=== PATIENT | male | born 1995 | race Hispanic/Latino ===

== ENCOUNTER 2016-08-06 12:34 | Emergency (ER) | payer OTHER ==
[2016-08-06] MEDS ORDERED: ASPIRIN PO STA (13:14)
--- NOTE | 2016-08-06 13:22 | PROVIDER DOCUMENTATION ---
HPI-Chest Pain - General Source: patient - History of Present Illness-CP Location: reports: substernal Chest Pain Radiation: reports: no radiation Quality of Pain: reports: aching Severity in ED: mild Onset/Duration: this morning Timing: still present, intermittent Context/Activities at Onset: reports: light activity Modifying Factors: improves with: nothing Associated Symptoms: denies: abdominal pain, back pain, diaphoresis, dizziness, edema, fatigue, fever/chills, headache, heartburn, nausea, rash, shortness of breath, swelling/lump in chest, syncope, vomiting, weakness Nitro Today/Relief: no nitro taken today Aspirin Treatment Today: no aspirin today Prior Chest Pain/Cardiac Workup: reports: no prior chest pain, no prior cardiac workup Similar Symptoms Previously?: No Recently Seen Here or By Another Healthcare Provider: No <Tasneem Bang - Last Filed: 08/06/16 14:03> <Anneliese Dillon - Last Filed: 08/06/16 14:15> - General Chief Complaint: Chest Pain Stated Complaint: CHEST PAIN Time Seen by Provider: 08/06/16 13:00 Allergies/Adverse Reactions: Patient Allergies Allergy/AdvReac Type Severity Reaction Status Date / Time No Known Allergies Allergy Verified 08/06/16 12:37 Home Medications: Home Medication List Medication Instructions Recorded Confirmed Last Taken Type Ketorolac [Toradol] 10 mg PO Q6H PRN PRN #20 tablet 08/06/16 Unknown Rx Methocarbamol [Robaxin] 500 mg PO BID #14 tablet 08/06/16 Unknown Rx - History of Present Illness-CP Nature of Presenting Problem: Pt is 20 y/o M presents to the ED with CP. Pt states the chest pain stated this am while he was eating breakfast. Pt denies cold like symptoms. Pt denies F. Pt denies N/V. Pt denies radiation of pain. Pt states worse with deep breathing. ( Tasneem Bang) Review of Systems - Adult - REVIEW OF SYSTEMS - ADULT Constitutional: denies: chills, fever Eyes: denies: blurred vision, double vision Ears, Nose, Mouth & Throat: denies: ear pain, nose pain, throat pain Cardiovascular: reports: chest pain. denies: heart murmur, irregular heart rate Respiratory: denies: cough, shortness of breath, wheezing Gastrointestinal: denies: abdominal pain, diarrhea, nausea, vomiting Genitourinary: denies: dysuria, hematuria Musculoskeletal: denies: bone pain, joint pain, neck pain Integumentary: denies: hives, itching Neurological: denies: dizziness/vertigo, headache/migraines Psychiatric: denies: anxiety, depression Endocrine: reports: no symptoms reported Hematologic/Lymphatic: reports: no symptoms reported Allergic/Immunologic: reports: no symptoms reported All Other Systems: Reviewed and Negative <Laya Bangomi - Last Filed: 08/06/16 14:03> Past History - Adult - PAST MEDICAL HISTORY-ADULT Review of Records: reports: Nursing Assessment Review, Medications Reviewed, Social history reviewed & non-contributory. Major Childhood Illnesses: reports: denies history Cardiovascular: reports: denies history Respiratory: reports: asthma Gastrointestinal: reports: denies history Obstetrical/Gynecological: reports: denies history Genitourinary: reports: denies history Musculoskeletal: reports: denies history Neurological: reports: denies history Endocrine/Immune: reports: denies history Other Conditions: reports: denies history - PRIOR SURGERIES/PROCEDURES Surgical/Procedure History: reports: reviewed, not pertinent - IMMUNIZATION STATUS Childhood Immunizations: See Nurse Assessment Flu Vaccine: See Nurse Assessment - FAMILY HISTORY Family History: reviewed, not pertinent - SOCIAL HISTORY Smoking: denies Substance Use: alcohol Alcohol Use Frequency: 3-4 times a week Number of drinks per typical drinking period:: 3-4 drinks Living Situation: family <Laya Bangomi - Last Filed: 08/06/16 14:03> Physical Exam-General - PHYSICAL EXAM-ADULT Initial Vital Signs Reviewed: Yes - CONSTITUTIONAL General Appearance: appears well, alert, no apparent distress - EYES Eyes: PERRL/EOMI, pink conjunctivae, fundi clear, no AV nicking - HEAD, EARS, NOSE, MOUTH & THROAT HENMT: normocephalic/atraumatic, moist mucous membranes, normal ENT inspection, TMs normal, pharynx normal - NECK Neck: non-tender, full range of motion, supple, normal inspection - RESPIRATORY Respiratory: chest non-tender, lungs clear, normal breath sounds, no pleuratic chest pain, no respiratory distress, no accessory muscle use - CARDIOVASCULAR Cardiovascular: normal peripheral pulses, regular rate, rhythm, no edema, no gallop, no JVD, no murmur - GASTROINTESTINAL (ABDOMEN) Abdominal Exam: normal bowel sounds, non tender, soft, no organomegaly, no pulsatile mass - LYMPHATIC Lymphatic: no adenopathy - MUSCULOSKELETAL Back Exam: normal inspection, no CVA tenderness, no vertebral tenderness Extremity: normal range of motion, non-tender, normal gait, normal inspection, no pedal edema, no calf tenderness, normal capillary refill - SKIN Integumentary: normal color, normal turgor, warm/dry - NEUROLOGIC Neurologic: grossly normal - PSYCHIATRIC Psych/Mental Status: normal mood/affect, oriented x 3 <Tasneem Bang - Last Filed: 08/06/16 14:03> Progress - EKG 1 Time of EKG reading by physician:: 13:21 EKG Read and Signed by:: Frank Thompson EKG Interpretation (*Must complete 3 of following elements*): Normal Rate: 72 Rhythm: normal sinus rhythm Comments: normal ECG <Tasneem Bang - Last Filed: 08/06/16 14:03> - XRAY 1 XRAY: Bilateral XRAY Study: Chest Impression: Normal (NAD) <Anneliese Dillon - Last Filed: 08/06/16 14:15> - PLAN OF CARE/RESULTS Progress/Plan/Lab Results: Orders Category Date Time Status Cardiac Monitoring DIRECTED Care 08/06/16 13:14 Active Saline Loc NOW Care 08/06/16 13:14 Active CHEST-2 VIEWS [RAD] Stat Exams 08/06/16 13:14 Ordered CBC WITH ELECTRONIC DIFF [HEME] Stat Lab 08/06/16 13:14 Ordered CK PROFILE [SP CHEM] Stat Lab 08/06/16 13:14 Ordered COMPREHENSIVE METABOLIC PANEL [CHEM] Stat Lab 08/06/16 13:[address] Ordered D-DIMER PL [COAG] Stat Lab 08/06/16 13:14 Ordered MAGNESIUM [CHEM] Stat Lab 08/06/16 13:14 Ordered PRO B-NATRIURETIC PEPTIDE Stat Lab 08/06/16 13:[address] Or[address]IME WITH INR PL [COAG] Stat Lab 08/06/16 13:[address] [COAG] Stat Lab 08/06/16 13:14 Ordered TROPONIN T Stat Lab 08/06/16 13:14 Ordered Aspirin Med 08/06/16 13:14 Discontinued 325 mg PO STAT STA EKG [EKG] Stat Ther 08/06/16 12:50 Ordered Vital Signs - 24 hr 08/06/16 12:37 Temperature 97.8 F Pulse Rate 73 Respiratory 18 Rate Blood Pressure 142/076 O2 Sat by Pulse 100 Oximetry Laboratory Tests 08/06/16 08/06/16 08/06/16 13:30 13:30 13:30 WBC 4.47 L RBC 5.81 Hgb 15.2 Hct 43.0 MCV 74.0 L MCH 26.2 L MCHC 35.3 RDW Std Deviation 14.1 Plt Count 201 MPV 10.7 H Immature Gran % (Auto) 0.0 Neut % (Auto) 49.8 Lymph % (Auto) 33.1 Bradford % (Auto) 12.1 H Eos % (Auto) 4.3 Baso % (Auto) 0.7 Immature Gran # (Auto) 0.00 Neut # (Auto) 2.23 Lymph # (Auto) 1.48 Bradford # (Auto) 0.54 Eos # (Auto) 0.19 Baso # (Auto) 0.03 PT INR APTT (Factor Assay) Sodium 143 Potassium 3.8 Chloride 106 Carbon Dioxide 27 Anion Gap 10 BUN 18 Creatinine 0.8 Estimated GFR/1.73 m2 > 60 BUN/Creatinine Ratio 23 Glucose 84 Calculated Osmolality 286 Calcium 9.2 Magnesium 2.1 Total Bilirubin 0.30 AST 21 ALT 20 Alkaline Phosphatase 83 Creatine Kinase 162 Troponin T < 0.010 Total Protein 7.6 Albumin 4.7 Globulin 3.0 Albumin/Globulin Ratio 2.0 08/06/16 13:30 WBC RBC Hgb Hct MCV MCH MCHC RDW Std Deviation Plt Count MPV Immature Gran % (Auto) Neut % (Auto) Lymph % (Auto) Bradford % (Auto) Eos % (Auto) Baso % (Auto) Immature Gran # (Auto) Neut # (Auto) Lymph # (Auto) Bradford # (Auto) Eos # (Auto) Baso # (Auto) PT 13.0 INR 0.95 APTT (Factor Assay) 27.2 Sodium Potassium Chloride Carbon Dioxide Anion Gap BUN Creatinine Estimated GFR/1.73 m2 BUN/Creatinine Ratio Glucose Calculated Osmolality Calcium Magnesium Total Bilirubin AST ALT Alkaline Phosphatase Creatine Kinase Troponin T Total Protein Albumin Globulin Albumin/Globulin Ratio (Tasneem Bang) Vital Signs Temp Pulse Resp BP Pulse Ox 08/06/16 12:37 97.8 F 73 18 142/076 100 No Known Allergies Allergy (Verified 08/06/16 12:37) No Home Medications 08/06/16 Laboratory 08/06/16 08/06/16 08/06/16 13:30 13:30 13:30 WBC 4.47 L RBC 5.81 Hgb 15.2 Hct 43.0 MCV 74.0 L MCH 26.2 L MCHC 35.3 RDW Std Deviation 14.1 Plt Count 201 MPV 10.7 H Immature Gran % (Auto) 0.0 Neut % (Auto) 49.8 Lymph % (Auto) 33.1 Bradford % (Auto) 12.1 H Eos % (Auto) 4.3 Baso % (Auto) 0.7 Immature Gran # (Auto) 0.00 Neut # (Auto) 2.23 Lymph # (Auto) 1.48 Bradford # (Auto) 0.54 Eos # (Auto) 0.19 Baso # (Auto) 0.03 PT 13.0 INR 0.95 APTT (Factor Assay) 27.2 D-Dimer < 0.22 L Sodium Potassium Chloride Carbon Dioxide Anion Gap BUN Creatinine Estimated GFR/1.73 m2 BUN/Creatinine Ratio Glucose Calculated Osmolality Calcium Magnesium Total Bilirubin AST ALT Alkaline Phosphatase Creatine Kinase Troponin T < 0.010 Total Protein Albumin Globulin Albumin/Globulin Ratio 08/06/16 13:30 WBC RBC Hgb Hct MCV MCH MCHC RDW Std Deviation Plt Count MPV Immature Gran % (Auto) Neut % (Auto) Lymph % (Auto) Bradford % (Auto) Eos % (Auto) Baso % (Auto) Immature Gran # (Auto) Neut # (Auto) Lymph # (Auto) Bradford # (Auto) Eos # (Auto) Baso # (Auto) PT INR APTT (Factor Assay) D-Dimer Sodium 143 Potassium 3.8 Chloride 106 Carbon Dioxide 27 Anion Gap 10 BUN 18 Creatinine 0.8 Estimated GFR/1.73 m2 > 60 BUN/Creatinine Ratio 23 Glucose 84 Calculated Osmolality 286 Calcium 9.2 Magnesium 2.1 Total Bilirubin 0.30 AST 21 ALT 20 Alkaline Phosphatase 83 Creatine Kinase 162 Troponin T Total Protein 7.6 Albumin 4.7 Globulin 3.0 Albumin/Globulin Ratio 2.0 Orders Category Date Time Status Cardiac Monitoring DIRECTED Care 08/06/16 13:14 Active Saline Loc NOW Care 08/06/16 13:14 Active CHEST-2 VIEWS [RAD] Stat Exams 08/06/16 13:14 Taken CBC WITH ELECTRONIC DIFF [HEME] Stat Lab 08/06/16 13:30 Completed CK PROFILE [SP CHEM] Stat Lab 08/06/16 13:30 Completed COMPREHENSIVE METABOLIC PANEL [CHEM] Stat Lab 08/06/16 13:30 Com[address] D-D[address]ER [address] [COAG] Stat Lab 08/06/16 13:30 Completed MAGNESIUM [CHEM] Stat Lab 08/06/16 13:30 Completed PRO B-NATRIURETIC PEPTIDE Stat Lab 08/06/16 13:[address] Re[address]IME WITH INR PL [COAG] Stat Lab 08/06/16 13:[address] [COAG] Stat Lab 08/06/16 13:30 Completed TROPONIN T Stat Lab 08/06/16 13:30 Completed Aspirin Med 08/06/16 13:14 Discontinued 325 mg PO STAT STA EKG [EKG] Stat Ther 08/06/16 12:50 Draft (Anneliese Dillon) Departure <Tasneem Bang - Last Filed: 08/06/16 14:03> - Departure Time of Disposition Order: 14:13 Certified Medical Emergency: Emergent <Anneliese Dillon - Last Filed: 08/06/16 14:15> - Departure DIAGNOSIS: Pleuritic chest pain Disposition: HOME 01 Condition: Stable Additional Instructions: Follow up with your primary care physician ED Follow Up Instructions: You have been treated by a care provider in the Emergency Department. These instructions are being provided to you so you can have an understanding of how to care for yourself upon discharge. Upon discharge from the Emergency Department, you are responsible for making arrangements for follow-up care by a physician of your choice. Take all prescribed medications as directed. Return to the Emergency Department immediately for any new or worsening symptoms. You may call the Physician Referral phone number at [phone] to obtain a list of Physicians who are taking new patients. Prescriptions: Methocarbamol [Robaxin] 500 mg PO BID #14 tablet Ketorolac [Toradol] 10 mg PO Q6H PRN PRN #20 tablet PRN Reason: Pain Referrals: Alejo Harris MD [Primary Care Provider] - Attestation - Scribe Verification/Attestation Scribe:: Tasneem Bang Acting as Scribe for:: Anneliese Dillon Scribe documention review:: This chart was documented by a scribe and accurately reflects the service the provider performed and the decisions made by the provider. <Tasneem Bang - Last Filed: 08/06/16 14:03> Physician Attestation
--- NOTE | 2016-08-06 13:56 | EKG Report ---
Test Performed on : 08/06/2016 1:12:51 PM Test Reason : chest pain Blood Pressure : / mmHG Vent. Rate : 072 BPM Atrial Rate : 072 BPM P-R Int : 188 ms QRS Dur : 092 ms QT Int : 360 ms P-R-T Axes : 072 081 065 degrees QTc Int : 394 ms Normal sinus rhythm. Normal ECG No previous ECGs available Unconfirmed Result
[2016-08-06 14:01] LABS: AGAP 10; ALBUMIN 4.7 g/dL (3.5-5.0); ALKALINE PHOSPHATASE 83 U/L (32-122); BUN 18 mg/dL (8-22); CALCIUM 9.2 mg/dL (8.8-10.2); CHLORIDE 106 mmol/L (98-107); CK PROFILE 162 U/L (24-204); COSMO 286; GOT 21 U/L (10-34); GPT 20 U/L (10-44); INR 0.95 (0.86-1.15); MAGNESIUM 2.1 mg/dL (1.5-2.7); POTASSIUM 3.8 mmol/L (3.5-5.1); SODIUM 143 mmol/L (136-145); TCO2 27 mmol/L (25-35); TOTAL PROTEIN 7.6 g/dL (6.3-8.3)
[2016-08-06 14:02] LABS: BASO% 0.7 % (0.0-0.8); EOS# 0.19 X1000 (0.0-0.7); EOS% 4.3 % (0.0-10.0); HEMOGLOBIN 15.2 g/dL (14.0-18.0); LYMPH# 1.48 X1000 (1.2-3.4); LYMPH% 33.1 % (20.5-51.1); MANUAL DIFF NEEDED? NO; MCH 26.2 PG (27-31); MCHC 35.3 g/dL (33-37); MONO# 0.54 X1000 (0.11-0.59); MONO% 12.1 % (1.7-9.3); MPV 10.7 FL (7.4-10.4); NEUT% 49.8 % (42.2-75.2); PLT 201 X1000 (130-400); PTT PL 27.2 Seconds (22.6-43.9); RBC 5.81 XMIL (4.7-6.1)
[2016-08-06 14:58] VITALS: BP 136/078
--- NOTE | 2016-08-06 15:47 | Diag Imaging Result Document ---
PROCEDURE NAME: CHEST-2 VIEWS - 08/06/2016 PA AND LATERAL RADIOGRAPH OF THE CHEST: COMPARISON: None available. FINDINGS: The lungs are grossly clear. There is no discrete pleural fluid collection or evidence of pneumothorax. The cardiomediastinal silhouette and upper airway are grossly unremarkable. IMPRESSION: No evidence of acute chest pathology.
== END 2016-08-06 14:30 | disposition home or self-care (01) ==
LOC: P.ED 12:34
DX: R07.81 Pleurodynia (principal)
CPT/HCPCS: 71020; 80053; 82550; 83735; 83880; 84484; 85025; 85379; 85610; 85730; 93005; 99284